=== PATIENT | female | born 1970 | race Caucasian/White ===

== ENCOUNTER 2016-06-11 09:19 | Emergency (ER) | payer MEDICARE, OTHER ==
[~2016-06-11] VITALS: Ht 165.1 cm; Wt 78.0 kg
[2016-06-11 09:25] VITALS: PULSE 92; RESP 18; TEMP 97.6; O2SAT 98
[2016-06-11] MEDS ORDERED: PERC2.5T PO (09:35)
[2016-06-11] MEDS ORDERED: ZOLO100T PO (09:35)
[2016-06-11] MEDS ORDERED: CLON1 PO (09:35)
[2016-06-11] MEDS ORDERED: SODIUM CHLOR 0.9% 1000 ML INJ 1,000 ML IV SCH (09:38)
[2016-06-11] MEDS ORDERED: DICYCLOMINE HCL 10 MG CAP PO ONE (09:45)
[2016-06-11] MEDS ORDERED: ONDANSETRON HCL 4 MG/2 ML VIAL IVP ONE (09:45)
[2016-06-11] MEDS ORDERED: SODIUM CHLOR 0.9% 1000 ML INJ 1,000 ML IV ONE ×2 (09:45→12:00)
[2016-06-11] MEDS ORDERED: SODIUM CHLORIDE 0.9% FLUSH 5 ML FLUSH IVF PRN (09:45)
[2016-06-11] MEDS ORDERED: PANTOPRAZOLE SODIUM 40 MG VIAL IVP ONE (09:45)
--- NOTE | 2016-06-11 09:49 | PD ---
HPI Chief Complaint: GI Complaint Time Seen by Provider: 09:31 Travel History International Travel<30 days: No Contact w/Intl Traveler<30days: No Traveled to known affect area: No History of Present Illness HPI Patient is a 45-year-old female who presents to emergency room with complaints of nausea, vomiting, diarrhea, abdominal pain for the past 2-1/2 weeks. Patient reports that for the past 2 and half weeks, she has been feeling very sick, reports that she has not been able to eat or drink anything. Reports that she has vomited multiple times and has had multiple episodes of diarrhea. Reports no recent travels or sick contacts. Reports that she has not taken any antibiotics recently. Reports that she works from home and is not exposed to anyone sick. Patient reports that she feels weak and dehydrated, reports increased pain to lower abdomen. Reports that she most likely needs some IV fluids and antiemetics for symptomatic relief. Patient denies dysuria, urinary urgency or frequency. Patient with no vaginal discharge or pelvic pain. Patient with no chest pain or shortness of breath at this time. PFSH Past Medical History Anxiety: Yes Depression: Yes Medical other: Yes (CHRONIC BACK PAIN) ?: Not LMP: 2 DAYS Tubal Ligation: Yes Past Surgical History Cholecystectomy: Yes Other Surgery: Yes (ROTATOR CUFF, BICEP TORN, BONE REMOVAL L ARM) Social History Alcohol Use: No Tobacco Use: Yes Substance Use: No Allergies-Medications (Allergen,Severity, Reaction): Coded Allergies: No Known Allergies (Unverified , 06/11/16) Reported Meds & Prescriptions Reported Meds & Active Scripts Active Zofran Odt (Ondansetron Odt) 4 Mg Tab 4 Mg SL Q6HR PRN Macrobid (Nitrofurantoin Monoh/Nitrofur Macro) 100 Mg Cap 100 Mg PO BID 10 Days Reported Percocet (Oxycodone-Acetaminophen) 2.5-325 mg Tab Unknown Dose PO Q4H PRN Zoloft (Sertraline HCl) 100 Mg Tab 200 Mg PO DAILY Klonopin (Clonazepam) 1 Mg Tab 1 Mg PO TID PRN Review of Systems General / Constitutional: No: Fever Eyes: No: Visual changes HENT: No: Headaches Cardiovascular: No: Chest Pain or Discomfort Respiratory: No: Shortness of Breath Gastrointestinal: Positive: Nausea, Vomiting, Diarrhea, Abdominal Pain, No: Constipation Genitourinary: No: Dysuria Musculoskeletal: No: Pain Skin: No Rash Neurologic: No: Weakness Psychiatric: No: Depression Endocrine: No: Polydipsia Hematologic/Lymphatic: No: Easy Bruising Physical Exam Narrative GENERAL: Moderate distress SKIN: Warm and dry. HEAD: Atraumatic. Normocephalic. EYES: Pupils equal and round. No scleral icterus. No injection or drainage. ENT: No nasal bleeding or discharge. Mucous membranes dry and tacky. NECK: Trachea midline. No JVD. CARDIOVASCULAR: Regular rate and rhythm. No murmur appreciated. RESPIRATORY: No accessory muscle use. Clear to auscultation. Breath sounds equal bilaterally. GASTROINTESTINAL: Abdomen soft, increased tenderness to the lower abdomen with no rebound on exam MUSCULOSKELETAL: No obvious deformities. No clubbing. No cyanosis. No edema. NEUROLOGICAL: Awake and alert. No obvious cranial nerve deficits. Motor grossly within normal limits. Normal speech. PSYCHIATRIC: Appropriate mood and affect; insight and judgment normal. Data Data Last Documented VS Vital Signs Date Time Temp Pulse Resp B/P Pulse Ox O2 Delivery O2 Flow Rate FiO2 06/11/16 11:42 90 20 109/53 96 06/11/16 09:25 97.6 Orders Complete Blood Count With Diff (06/11/16 09:38) Comprehensive Metabolic Panel (06/11/16 09:38) Lipase (06/11/16 09:38) Prothrombin Time / Inr (Pt) (06/11/16 09:38) Act Partial Throm Time (Ptt) (06/11/16 09:38) Urinalysis - C+S If Indicated (06/11/16 09:38) Ct Abd/Pel W Iv Contrast(Rout) (06/11/16 09:38) Iv Access Insert/Monitor (06/11/16 09:38) Ondansetron Inj (Zofran Inj) (06/11/16 09:45) Pantoprazole Inj (Protonix Inj) (06/11/16 09:45) Sodium Chlor 0.9% 1000 Ml Inj (Ns 1000 M (06/11/16 09:38) Sodium Chloride 0.9% Flush (Ns Flush) (06/11/16 09:45) Dicyclomine (Bentyl) (06/11/16 09:45) Sodium Chlor 0.9% 1000 Ml Inj (Ns 1000 M (06/11/16 09:45) C Diff Toxin Pcr (06/11/16 09:38) Potassium Chlor 20 Meq Premix (Kcl 20 Me (06/11/16 10:30) Iohexol 350 Inj (Omnipaque 350 Inj) (06/11/16 10:41) Morphine Inj (Morphine Inj) (06/11/16 11:00) Ondansetron Inj (Zofran Inj) (06/11/16 11:00) Urine Culture (06/11/16 10:30) Ceftriaxone Inj (Rocephin Inj) (06/11/16 11:15) Labs Laboratory Tests Test 06/11/16 06/11/16 09:45 10:30 White Blood Count 13.5 TH/MM3 Red Blood Count 4.79 MIL/MM3 Hemoglobin 13.4 GM/DL Hematocrit 41.1 % Mean Corpuscular Volume 85.8 FL Mean Corpuscular Hemoglobin 28.0 PG Mean Corpuscular Hemoglobin 32.6 % Concent Red Cell Distribution Width 16.5 % Platelet Count 418 TH/MM3 Mean Platelet Volume 9.1 FL Neutrophils (%) (Auto) 73.5 % Lymphocytes (%) (Auto) 15.2 % Monocytes (%) (Auto) 8.5 % Eosinophils (%) (Auto) 0.3 % Basophils (%) (Auto) 2.5 % Neutrophils # (Auto) 10.0 TH/MM3 Lymphocytes # (Auto) 2.1 TH/MM3 Monocytes # (Auto) 1.1 TH/MM3 Eosinophils # (Auto) 0.0 TH/MM3 Basophils # (Auto) 0.3 TH/MM3 CBC Comment DIFF FINAL Differential Comment Prothrombin Time 11.3 SEC Prothromb Time International 1.0 RATIO Ratio Activated Partial 23.1 SEC Thromboplast Time Sodium Level 138 MEQ/L Potassium Level 3.0 MEQ/L Chloride Level 101 MEQ/L Carbon Dioxide Level 24.8 MEQ/L Anion Gap 12 MEQ/L Blood Urea Nitrogen 8 MG/DL Creatinine 0.66 MG/DL Estimat Glomerular Filtration 96 ML/MIN Rate Random Glucose 124 MG/DL Calcium Level 8.7 MG/DL Total Bilirubin 0.5 MG/DL Aspartate Amino Transf 33 U/L (AST/SGOT) Alanine Aminotransferase 38 U/L (ALT/SGPT) Alkaline Phosphatase 70 U/L Total Protein 7.1 GM/DL Albumin 3.3 GM/DL Lipase 131 U/L Urine Collection Type CLEAN CATCH Urine Color YELLOW Urine Turbidity SLIGHT Urine pH 8.0 Urine Specific [place] 1.022 Urine Protein 30 mg/dL Urine Glucose (UA) NEG mg/dL Urine Ketones TRACE mg/dL Urine Occult Blood LARGE Urine Nitrite NEG Urine Bilirubin NEG Urine Leukocyte Esterase SMALL Urine RBC 15-19 /hpf Urine WBC 9-14 /hpf Urine Squamous Epithelial > 8 /hpf Cells Microscopic Urinalysis Comment CULTURE INDICATED Urine Collection Time 10:30 [facility] Medical Decision Making Medical Screen Exam Complete: Yes Emergency Medical Condition: Yes Interpretation(s) Vital Signs Date Time Temp Pulse Resp B/P Pulse Ox O2 Delivery O2 Flow Rate FiO2 06/11/16 09:25 97.6 92 18 98 Differential Diagnosis Gastroenteritis, colitis, peptic ulcer disease, C. difficile colitis, UTI, appendicitis, electrolyte abnormality Narrative Course Patient is a 45-year-old female who presents to emergency room with her mother for evaluation of abdominal pain with nausea, vomiting, and diarrhea for the past 2-1/2 weeks. Patient reports that she has had no sick contacts, has not been on any medications including antibiotics. Overall, patient dehydrated on exam. Patient does have diffuse tenderness to the lower abdomen. IV ordered. Labs as well as CAT scan of abdomen and pelvis with IV contrast ordered for further evaluation of symptoms. C. difficile cultures ordered as patient has had "many many episodes of diarrhea" in the past 2 weeks. Will hydrate patient with IV fluids and give antiemetics. CBC WBC 13.5 Hemoglobin 13.4 Hematocrit 41.1 Platelets 418 BMP Sodium 138 Potassium 3.0 Chloride 101 BUN 8 Creatinine 0.66 Lipase 131 AST 33 ALT 38 Alkaline phosphatase 70 UA: Positive for large occult blood, trace ketones, leuk esterase, 15-19 red blood cells, 9-14 white blood cells c.diff cultures pending ct abdomen and pelvis: Last Impressions Abdomen/Pelvis CT 06/11/16 0938 Signed Impressions: Service Date/Time: Saturday, June 11, 2016 10:33 - CONCLUSION: 1. 10 by 8mm densely calcified bladder stone. 2. The kidneys and ureters are unremarkable. 3. Status post cholecystectomy. 4. Fatty infiltration of the liver. 5. The bowel gas pattern is unremarkable with no inflammatory change or obstruction. No oral contrast was given limiting the sensitivity. Chema Fuentes MD Copies of CAT scan results were given to patient. I reviewed all labs and all studies as well as all findings with patient in detail. Patient reevaluated, patient is feeling much better at this time. Plan to send patient home with antiemetics as well as bentyl and antibiotics for uti. She will follow up with pcp and cultures from today, signs and symptoms of when to return to the emergency room was reviewed patient and her mother in detail. Diagnosis Primary Impression: Abdominal pain Qualified Code: R10.84 - Generalized abdominal pain Additional Impressions: Nausea vomiting and diarrhea UTI (urinary tract infection) Qualified Code: N30.01 - Acute cystitis with hematuria Hypokalemia Dehydration Bladder stone Referrals: Clyde Gallo DO Patient Instructions: General Instructions, Narcotic given in the ED Additional Instructions: Please provide patient with a copy of her labs and studies at discharge Please follow-up with urologist as soon as possible Please follow up with cultures from today Please follow up with your primary care doctor as soon as possible Please drink plenty of fluids Return to emergency room if symptoms persist or worsen Take all antibiotics as prescribed Med/Other Pt SpecificInfo: Prescription(s) given Scripts Ondansetron Odt (Zofran Odt)4 Mg Tab4 Mg SL Q6HR PRN (Nausea/Vomiting) #30 TAB Ref 0 Prov:Erin Elliott DO 06/11/16 Nitrofurantoin Monohydrate Macrocrystals (Macrobid)100 Mg [id number] Mg PO BID 10 Days Ref 0 Prov:Erin Elliott DO 06/11/16 Erin Elliott DO Jun 11, 2016 09:49
[2016-06-11 09:56] LABS: BASOPHIL # 0.3 TH/MM3 (0-0.2); BASOPHIL % 2.5 % (0.0-2.0); EOSINOPHIL % 0.3 % (0.0-4.0); HEMATOCRIT 41.1 % (35.0-46.0); HEMO FLAGS DIFF FINAL; LYMPH % 15.2 % (9.0-44.0); LYMPHOCYTE # 2.1 TH/MM3 (1.0-4.8); MEAN CELL VOLUME 85.8 FL (80.0-100.0); MEAN CORPUSCULAR HGB CONC 32.6 % (32.0-36.0); MONO % 8.5 % (0.0-8.0); NEUT % 73.5 % (16.0-70.0); PLATELET COUNT 418 TH/MM3 (150-450); RED BLOOD COUNT 4.79 MIL/MM3 (4.00-5.30); RED CELL DISTRIBUTION WIDTH 16.5 % (11.6-17.2); WHITE BLOOD COUNT 13.5 TH/MM3 (4.0-11.0)
[2016-06-11 10:09] LABS: APTT (PATIENT) 23.1 SEC (24.3-30.1); PROTHROMBIN TIME - PATIENT 11.3 SEC (9.8-11.6)
[2016-06-11 10:21] LABS: ANION GAP 12 MEQ/L (5-15); BICARBONATE 24.8 MEQ/L (21.0-32.0); BLOOD UREA NITROGEN 8 MG/DL (7-18); CHLORIDE 101 MEQ/L (98-107); SODIUM (NA) 138 MEQ/L (136-145)
[2016-06-11 10:24] LABS: ALT (GPT) 38 U/L (10-53); AST (GOT) 33 U/L (15-37); GLOMERULAR FILTRATION RATE 96 ML/MIN (>89)
[2016-06-11 10:27] LABS: ALKALINE PHOSPHATASE 70 U/L (45-117)
[2016-06-11] MEDS ORDERED: POTASSIUM CHLOR 20 MEQ PREMIX 100 ML IV ONE (10:30)
[2016-06-11 10:33] LABS: TOTAL BILIRUBIN ADULT 0.5 MG/DL (0.2-1.0)
[2016-06-11] MEDS ORDERED: IOHEXOL 350 MG/ML 10 ML VIAL (for RAD DIAG) IV ONE (10:41)
[2016-06-11 10:51] VITALS: BP 129/63; PULSE 69; RESP 20; O2SAT 100
[2016-06-11 10:52] LABS: BLOOD, URINE LARGE (NEG); GLUCOSE,URINE NEG (NEG); KETONE, URINE TRACE mg/dL (NEG); NITRITE,URINE NEG (NEG)
--- NOTE | 2016-06-11 10:57 | RADHPO ---
EXAM DATE/TIME: 06/11/2016 10:33 [facility] COMPARISON: No previous studies available for comparison. INDICATIONS : Unspecified abdominal pain with nausea, vomiting and diarrhea. IV CONTRAST: 95 cc Omnipaque 350 (iohexol) IV ORAL CONTRAST: No oral contrast ingested. RADIATION DOSE: 12.51 CTDIvol (mGy) MEDICAL HISTORY : None SURGICAL HISTORY : Cholecystectomy. Tubal ligation.Breast augmentation. ENCOUNTER: Initial ACUITY: 2 weeks PAIN SCALE: 4/10 LOCATION: Bilateral abdomen/pelvis TECHNIQUE: Volumetric scanning of the abdomen and pelvis was performed. Using automated exposure control and ad justment of the mA and/or kV according to patient size, radiation dose was kept as low as reasonably achievable to obtain optimal diagnostic quality images. FINDINGS: LOWER LUNGS: The visualized lower lungs are clear. Bilateral breast implants are partially visualized. LIVER: Homogeneous density without lesion. There is diffuse fatty infiltration the liver. The patient is st atus post cholecystectomy. SPLEEN: Normal size without lesion. PANCREAS: Within normal limits. KIDNEYS: Normal in size and shape. There is no mass, stone or hydronephrosis. ADRENAL GLANDS: Within normal limits. VASCULAR: There is no aortic aneurysm. BOWEL/MESENTERY: The stomach, small bowel, and colon demonstrate no acute abnormality. There is no free intraperitone al air or fluid. ABDOMINAL WALL: Within normal limits. RETROPERITONEUM: There is no lymphadenopathy. BLADDER: Normal in size and wall thickness. There is a densely calcified stone in the right posterior bladder measuring up to 10 x 8 mm. REPRODUCTIVE: Within normal limits. INGUINAL: There is no lymphadenopathy or hernia. MUSCULOSKELETAL: Within normal limits for patient age. CONCLUSION: 1. 10 by 8mm densely calcified bladder stone. 2. The kidneys and ureters are unremarkable. 3. Status post cholecystectomy. 4. Fatty infiltration of the liver. 5. The bowel gas pattern is unremarkable with no inflammatory change or obstruction. No oral contrast was given limiting the sensitivity. Cehma Fuentes MD on June 11, 2016 at 10:47 Board Certified Radiologist. This report was verified electronically.
[2016-06-11 11:00] LABS: COMMENT (UR) CULTURE INDICATED; CULTURE IF INDICATED CULTURE INDICATED; METHOD OF COLLECTION CLEAN CATCH; RBC, URINE 15-19 /hpf (0-3); SQUAMOUS EPITHELIAL CELL URINE > 8 /hpf (0-5); URINE COLOR YELLOW (YELLW/STRAW)
[2016-06-11] MEDS ORDERED: ONDANSETRON HCL 4 MG/2 ML VIAL IV PUSH ONE ×2 (11:00→12:00)
[2016-06-11] MEDS ORDERED: MORPHINE SULFATE 4 MG/ML INJ IV PUSH ONE (11:00)
[2016-06-11] MEDS ORDERED: cefTRIAXone INJ 1,000 MG in SODIUM CHLORIDE 0.9% INJ 100 ML IV ONE (11:15)
[2016-06-11 11:42] VITALS: BP 109/53; PULSE 90; RESP 20; O2SAT 96
[2016-06-11] MEDS ORDERED: MACR100C2 PO (11:45)
[2016-06-11] MEDS ORDERED: ZOFR4TAB3 SL (11:45)
[2016-06-11 12:36] VITALS: BP 142/73; PULSE 77; RESP 20; O2SAT 98
[2016-06-11] MEDS ORDERED: KETOROLAC TROMETHAMINE 30 MG/ML (IVP) VIAL IV PUSH ONE (12:45)
[2016-06-11 13:28] VITALS: BP 100/54; PULSE 80; RESP 18; O2SAT 96
[2016-06-11 15:29] LABS: C. DIFF EPI 027 PRESUMPTIVE NEGATIVE (NEGATIVE); C. DIFF TOXIN PCR NEGATIVE (NEGATIVE)
[2016-06-12] MEDS ORDERED: PROM1SUP7 RECTAL (14:06)
== END 2016-06-11 13:59 | disposition home or self-care (01) ==
LOC: PHED 09:19
DX: R10.84 Generalized abdominal pain (principal); R11.2 Nausea with vomiting, unspecified; R19.7 Diarrhea, unspecified; N30.01 Acute cystitis with hematuria; B96.89 Other specified bacterial agents as the cause of diseases classified elsewhere; E87.6 Hypokalemia; E86.0 Dehydration; N21.0 Calculus in bladder
CPT/HCPCS: 74177; 80053; 81001; 83690; 85025; 85610; 85730; 87086; 87493; 96361; 96365; 96366; 96367; 96375; 96376; 99285; C9113; J0696; J1885; J2270; J2405; J3480; J7030; Q9967

== ENCOUNTER 2016-06-12 11:56 | Emergency (ER) | payer MEDICARE, OTHER ==
[~2016-06-12] VITALS: Ht 165.1 cm; Wt 79.0 kg
[~2016-06-12 11:56] MED LIST: CLON1 PO; MACR100C2 PO; PERC2.5T PO; ZOFR4TAB3 SL; ZOLO100T PO
[2016-06-12 11:59] VITALS: BP 126/64; PULSE 60; RESP 16; TEMP 97.4; O2SAT 100
[2016-06-12] MEDS ORDERED: MORPHINE SULFATE 4 MG/ML INJ IM ONE (12:30)
[2016-06-12] MEDS ORDERED: PROMETHAZINE INJ 25 MG/ML VIAL IM ONE (12:30)
[2016-06-12] MEDS ORDERED: LIDOCAINE HCL 1% PF 30 ML VIAL XX ONE (12:30)
--- NOTE | 2016-06-12 12:40 | PD ---
HPI Chief Complaint: Abdominal Pain Time Seen by Provider: 12:12 Travel History International Travel<30 days: No Contact w/Intl Traveler<30days: No Traveled to known affect area: No History of Present Illness HPI The patient was seen and examined in the presence of the nurse. This patient complains of abdominal pain and nausea and vomiting and diarrhea. She was seen here 2 days ago and had extensive workup including labs and IV fluids and CT scan. Urine culture is pending. No etiology was uncovered. There is an incidental bladder stone. Symptom severity is moderate. No alleviating factors. 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 27) ?: Not LMP: 06/09/16 Tubal Ligation: Yes Past Surgical History Cholecystectomy: Yes Other Surgery: Yes (ROTATOR CUFF, BICEP TORN, BONE REMOVAL L ARM) Social History Alcohol Use: No Tobacco Use: Yes Substance Use: No Allergies-Medications (Allergen,Severity, Reaction): Coded Allergies: No Known Allergies (Unverified , 06/12/16) Reported Meds & Prescriptions Reported Meds & Active Scripts Active Zofran Odt (Ondansetron Odt) 4 Mg Tab 4 Mg SL Q6HR PRN Macrobid (Nitrofurantoin Monoh/Nitrofur Macro) 100 Mg Cap 100 Mg PO BID 10 Days Reported Percocet (Oxycodone-Acetaminophen) 2.5-325 mg Tab Unknown Dose PO Q4H PRN Zoloft (Sertraline HCl) 100 Mg Tab 200 Mg PO DAILY Klonopin (Clonazepam) 1 Mg Tab 1 Mg PO TID PRN Review of Systems General / Constitutional: No: Fever HENT: No: Headaches Cardiovascular: No: Chest Pain or Discomfort Respiratory: No: Cough Gastrointestinal: Positive: Nausea, Vomiting, Diarrhea, Abdominal Pain Physical Exam Narrative GENERAL: Well-nourished, well-developed patient in no apparent distress. SKIN: Warm and dry. HEAD: Atraumatic. Normocephalic. EYES: Pupils equal and round. No scleral icterus. No injection or drainage. ENT: No nasal bleeding or discharge. Mucous membranes pink and moist. NECK: Trachea midline. No JVD. CARDIOVASCULAR: Regular rate and rhythm. No murmur appreciated. RESPIRATORY: No accessory muscle use. Clear to auscultation. Breath sounds equal bilaterally. GASTROINTESTINAL: Abdomen soft, non-tender, nondistended. Hepatic and splenic margins not palpable. MUSCULOSKELETAL: No obvious deformities. No clubbing. No cyanosis. No edema. NEUROLOGICAL: Awake and alert. No obvious cranial nerve deficits. Motor grossly within normal limits. Normal speech. PSYCHIATRIC: Appropriate mood and affect; insight and judgment normal. Data Data Last Documented VS Vital Signs Date Time Temp Pulse Resp B/P Pulse Ox O2 Delivery O2 Flow Rate FiO2 06/12/16 11:59 97.4 60 16 126/64 100 Orders Urinalysis - C+S If Indicated (06/12/16 12:03) Morphine Inj (Morphine Inj) (06/12/16 12:30) Promethazine Inj (Phenergan Inj) (06/12/16 12:30) Ceftriaxone Inj (Rocephin Inj) (06/12/16 12:30) Lidocaine Pf 1% Inj (Xylocaine-Mpf 1% In (06/12/16 12:30) MDM Medical Decision Making Medical Screen Exam Complete: Yes Emergency Medical Condition: Yes Medical Record Reviewed: Yes Differential Diagnosis Irritable bowel syndrome, colitis, gastroenteritis Narrative Course I have reviewed the patient's electronic medical record. I reviewed the extensive workup from 2 days ago Patient has soft benign nontender abdomen and has good vital signs. I don't feel repeating that extensive workup from 2 days ago is indicated. I gave her injection of Phenergan and morphine and Rocephin as she reported it was difficult to keep the Macrobid down Phenergan suppositories given Recommend primary care follow-up Diagnosis Primary Impression: Abdominal pain Qualified Code: R10.33 - Periumbilical abdominal pain Additional Impression: Nausea vomiting and diarrhea Additional Instructions: The patient was advised to follow up with their physician and return if they worsen. The patient was warned about potential sedation for the medications they will receive on prescription. Med/Other Pt SpecificInfo: Prescription(s) given Disposition: 01 DISCHARGE HOME Condition: Stable Praveen Salgado MD Jun 12, 2016 12:40
[2016-06-12 13:00] VITALS: RESP 18
[2016-06-12] MEDS ORDERED: PROM1SUP7 RECTAL (14:06)
== END 2016-06-12 13:36 | disposition home or self-care (01) ==
LOC: PHED 11:56
DX: R10.9 Unspecified abdominal pain (principal); Z72.0 Tobacco use
CPT/HCPCS: 96372; 99283; J0696; J2270; J2550